=== PATIENT | male | born 2000 ===

== ENCOUNTER 2023-10-18 11:32 | Outpatient (AMB) | payer OTHER, SELFPAY ==
--- NOTE | 2023-10-18 12:30 | MHC.OFFWIV ---
Intake Vital Signs 10/18/23 12:34 Height 5 ft 6 in Weight 134 lb BMI 21.6 BP 116/70 Blood Pressure Location Rt brachial Position Sitting Pulse 87 Pulse Source Pulse Oximeter Temp 99.5 F Temp Source Temporal Artery Scan Pulse Oximetry (%) 99 Oxygen Delivery Method Room Air Intake Visit Reasons: [employer] possible covid exposure [id number] Intake Note: pt is here for possible covid exposure started tuesday Patient Tobacco Use Status: Never used Tobacco Allergies No Known Allergies Allergy (Verified 10/18/23 12:31) Do you need a note to return to daycare/school/sports/work: Yes HPI [employer] possible covid exposure [id number] HPI Details Patient presents for a sick visit. Reporting symptoms of sinus congestion, sore throat and difficulty swallowing. Low-grade fever. No family member is sick. No recent travel. Patient reports symptoms of malaise and fatigue. PFSH Social History Patient Tobacco Use Status: Never used Tobacco Physical Exam Vital Signs: Last Vital Signs Temp 99.5 F 10/18/23 12:34 Pulse 87 10/18/23 12:34 BP 116/70 10/18/23 12:34 Pulse Ox 99 10/18/23 12:34 Oxygen Delivery Method Room Air 10/18/23 12:34 BMI result Body Mass Index 21.6 Const General: cooperative and healthy appearing Nutritional Appearance: well nourished Orientation/consciousness: patient oriented x3 Limitations: no limitations HEENT Head: Yes normal to inspection Eyes General: appearance normal, both eyes and all related structures Neck Neck: Yes normal visual inspection Chest Chest palpation & inspection: normal palpation of entire chest wall Resp Effort & Inspection: normal respiratory effort Neuro General: patient oriented x3 Assessment & Plan Assessment & Plan (1) Upper respiratory tract infection: Code(s): J06.9 - Acute upper respiratory infection, unspecified Plan: Increase fluid intake. Tylenol for aches and pains. If symptoms worsen, follow-up here for a recheck. No antibiotics needed. Will call with results of the viral swab. Coding Level of Care Code Est Pt Level 3 (79665) Diagnoses Upper respiratory tract infection J06.9
[2023-10-18 12:34] VITALS: BP 116/70; PULSE 87; TEMP 37.5; O2SAT 99; BMI 21.6
== END 2023-10-18 13:11 | disposition home or self-care (01) ==
PROVIDERS: Visit Provider Internal Medicine
DX: J06.9 Acute upper respiratory infection, unspecified (principal)
CPT/HCPCS: 99213

== ENCOUNTER 2023-10-18 13:46 | Outpatient (REF) | payer OTHER, SELFPAY ==
[2023-10-18 17:43] LABS: Influenza A PCR NEGATIVE (Negative); Influenza B PCR NEGATIVE (Negative); Resp Syncy Virus RNA Qual PCR NEGATIVE (Negative); SARS COV2 PCR INHOUSE NEGATIVE (Negative)
== END 2023-10-18 13:47 | disposition home or self-care (01) ==
LOC: HO.LAB 13:46
PROVIDERS: Visit Provider Internal Medicine
DX: Z11.52 Encounter for screening for COVID-19 (principal); R43.9 Unspecified disturbances of smell and taste; Z20.822 Contact with and (suspected) exposure to COVID-19
CPT/HCPCS: 0241U

== ENCOUNTER → 2024-04-13 11:29 | Outpatient (BNVA) | payer OTHER, SELFPAY | PROVIDERS: Visit Provider Physician Assistant | DX: S20.219A Contusion of unspecified front wall of thorax, initial encounter (principal); S20.224A Contusion of middle back wall of thorax, initial encounter; X58.XXXA Exposure to other specified factors, initial encounter | CPT/HCPCS: 99203 ==